=== PATIENT | male | born 1935 | race Caucasian/White ===

== ENCOUNTER 2018-12-10 12:44 | Inpatient (IN) ==
[2018-12-10] MEDS ORDERED: DUONEB (A & A) INH ONE (13:15)
--- NOTE | 2018-12-10 13:35 | EKG Report ---
Test Performed on : 12/10/2018 1:19:40 PM Test Reason : CP Blood Pressure : / mmHG Vent. Rate : 109 BPM Atrial Rate : 234 BPM P-R Int : 000 ms QRS Dur : 070 ms QT Int : 344 ms P-R-T Axes : 000 034 017 degrees QTc Int : 463 ms Atrial fibrillation. with rapid ventricular response. ST & T wave abnormality, consider lateral ischemia Abnormal ECG When compared with ECG of 22-OCT-2014 15:33, Atrial fibrillation. has replaced Sinus rhythm. Nonspecific T wave abnormality now evident in Inferior leads T wave inversion now evident in Lateral leads Unconfirmed Result
[2018-12-10 13:54] LABS: BASO# 0.02 X1000 (0.0-0.2); BASO% 0.2 % (0.0-0.8); HEMATOCRIT 41.4 % (42.0-52.0); HEMOGLOBIN 13.9 g/dL (14.0-18.0); IMM GRAN# 0.04 X1000 (0.0-0.04); IMM GRAN% 0.4 % (0.0-0.5); LYMPH# 0.31 X1000 (1.2-3.4); MCHC 33.6 g/dL (33-37); MCV 92.2 FL (81-99); MONO# 1.01 X1000 (0.11-0.59); MONO% 9.8 % (1.7-9.3); NEUT# 8.88 X1000 (1.4-6.5); NEUT% 86.6 % (42.2-75.2); PLT 169 X1000 (130-400); RBC 4.49 XMIL (4.7-6.1); RDW 12.8 % (11.5-14.5); WBC 10.26 X1000 (4.8-10.8)
[2018-12-10 14:03] LABS: ALBUMIN 3.8 g/dL (3.5-5.0); CALCIUM 9.5 mg/dL (8.8-10.2); CREATININE 1.2 mg/dL (0.7-1.2); POTASSIUM 3.9 mmol/L (3.5-5.1); TOTAL BILIRUBIN 0.7 mg/dL (0.20-1.00); TOTAL PROTEIN 7.5 g/dL (6.3-8.3)
[2018-12-10 14:10] LABS: INFLUENZA A POSITIVE (NEGATIVE); INFLUENZA B NEGATIVE (NEGATIVE)
--- NOTE | 2018-12-10 14:16 | Diag Imaging Result Doc PS360 ---
EXAM: CHEST-2 VIEWS HISTORY: shortness of breath TECHNIQUE: Chest two views COMPARISON: 08/03/2016 FINDINGS: The lungs are hyperexpanded. The heart is not enlarged. The vessels are not distended. There are no infiltrates. There is scarring in the apices with pleural thickening. No pleural effusions. IMPRESSION: No acute abnormality. Electronically signed by Bridger Wolfe 12/10/2018 2:13 PM
[2018-12-10] MEDS ORDERED: NS 1,000 ML IV ONE (15:03)
[2018-12-10] MEDS ORDERED: MAGNESIUM SULFATE 1 GM/D5W 1 GM/100 ML IVPB IV ONE (15:04)
[2018-12-10] MEDS ORDERED: SOLU-MEDROL IV ONE (15:05)
--- NOTE | 2018-12-10 15:07 | PROVIDER DOCUMENTATION ---
HPI-General Adult - General Stated Complaint: FALL, WEAKNESS Time Seen by Provider: 12/10/18 14:51 Source: patient, EMS Allergies/Adverse Reactions: Patient Allergies Allergy/AdvReac Type Severity Reaction Status Date / Time No Known Allergies Allergy Verified 02/04/15 15:24 Home Medications: Home Medication List Medication Instructions Recorded Confirmed Last Taken Type Atorvastatin Calcium 80 mg PO DAILY 10/20/14 07/24/16 07/23/16 20:00 History Hydrocodone/Acetaminophen [[place] 1 each PO Q4-6H PRN PRN #20 tablet 10/20/1410/22/14 00:00 Rx 10-325 Tablet] Ipratropium [place] Neb [Atrovent 0.5 mg NEB BID 10/20/14 07/24/16 07/23/16 12: 00 History Neb] Multivitamin [Multi-Vitamin Daily] 1 each PO DAILY 10/20/14 07/24/16 07/23/16 19 :00 History Budesonide/Formoterol Fumarate 10.2 gm IH BID 10/22/14 07/24/16 07/24/16 08:00 History [Symbicort 160-4.5 Mcg Inhaler] Montelukast Sodium 10 mg PO DAILY 10/22/14 07/24/16 07/23/16 20:00 History Ascorbate Calcium [Vitamin C] 500 mg PO DAILY 07/24/16 07/24/16 07/23/16 20:00 History Hydroxyzine Pamoate 25 mg PO Q4-6H PRN 07/24/16 07/24/16 07/23/16 12:00 History Prednisone 5 mg PO DAILY 07/24/16 07/24/16 07/23/16 20:00 History - History of Present Illness -Gen Adult Nature of Presenting Problems: Has felt weak for two days, no known fever, less interested in po intake, found on ground today, brought here by EMS.. Pt says he has a PMH of afib and copd. There is no one here to give more information Location of Pain/Injury: reports: none Quality of Pain: reports: none Modifying Factors: improves with: nothing Associated Symptoms: reports: fatigue, loss of appetite, malaise, muscle aches, shortness of breath, weakness. denies: anxiety, arm pain, back/neck pain, chest pain, constipation, cough, diaphoresis, diarrhea, dizziness, EENT symptoms , fever/chills, headaches, joint pain, sinus congestion/drainage, nausea, rash, seizure, sensory/motor loss, pain with inspiration, swelling/mass in abdomen, syncope, vomiting, trouble walking Similar Symptoms Previously?: No Recently seen or treated by another doctor?: No Review of Systems - Adult - REVIEW OF SYSTEMS - ADULT Constitutional: reports: no symptoms reported, fatique. denies: fever Eyes: reports: no symptoms reported. denies: discharge Ears, Nose, Mouth & Throat: reports: no symptoms reported. denies: ear discharge, ear pain Cardiovascular: reports: irregular heart rate Respiratory: reports: cough, dyspnea on exertion, shortness of breath, wheezing Gastrointestinal: reports: no symptoms reported Genitourinary: reports: no symptoms reported Musculoskeletal: reports: no symptoms reported Integumentary: reports: no symptoms reported Neurological: reports: no symptoms reported Psychiatric: reports: no symptoms reported Endocrine: reports: no symptoms reported Hematologic/Lymphatic: reports: no symptoms reported Allergic/Immunologic: reports: no symptoms reported All Other Systems: Reviewed and Negative Past History - Adult - PAST MEDICAL HISTORY-ADULT Review of Records: reports: Nursing Assessment Review, Medications Reviewed Major Childhood Illnesses: reports: denies history Cardiovascular: reports: denies history Respiratory: reports: COPD Gastrointestinal: reports: denies history Obstetrical/Gynecological: reports: denies history Genitourinary: reports: denies history, prostate cancer Musculoskeletal: reports: denies history Neurological: reports: denies history Psychiatric: reports: denies history Endocrine/Immune: reports: denies history Other Conditions: reports: denies history - PRIOR SURGERIES/PROCEDURES Surgical/Procedure History: reports: reviewed, not pertinent - IMMUNIZATION STATUS Childhood Immunizations: See Nurse Assessment Flu Vaccine: See Nurse Assessment - FAMILY HISTORY Family History: reviewed, not pertinent Physical Exam-General - PHYSICAL EXAM-ADULT Initial Vital Signs Reviewed: Yes - CONSTITUTIONAL General Appearance: alert, no apparent distress - EYES Eyes: pink conjunctivae - HEAD, EARS, NOSE, MOUTH & THROAT HENMT: other (dry mucus membranes) - NECK Neck: non-tender, full range of motion, supple, normal inspection - RESPIRATORY Respiratory: chest non-tender, lungs clear, respiratory distress (on arrival, off his oxygen after the fall), wheezing, prolonged expiration, increased rate - CARDIOVASCULAR Cardiovascular: irregularly irregular, other (rapid rate) - GASTROINTESTINAL (ABDOMEN) Abdominal Exam: non tender, soft - LYMPHATIC Lymphatic: no adenopathy - MUSCULOSKELETAL Back Exam: normal inspection Extremity: normal range of motion, non-tender, normal inspection Peripheral Pulses: radial (R): 2+, radial (L): 2+, dorsalis-pedis (R): 2+, dorsalis-pedis (L): 2+ - SKIN Integumentary: normal color, normal turgor, warm/dry - NEUROLOGIC Neurologic: grossly normal, no motor/sensory deficits - PSYCHIATRIC Psych/Mental Status: normal mood/affect, normal thought content (slow sometimes to formulate an answer to a question), oriented x 3 Progress - PLAN OF CARE/RESULTS Progress/Plan/Lab Results: Vital Signs - 8 hr 12/10/18 12:44 12/10/18 13:52 Temperature 102.6 F H Pulse Rate 113 H 117 H Respiratory Rate 22 24 Blood Pressure 108/74 O2 Sat by Pulse Oximetry 92 L 95 Laboratory Results - last 24 hr 12/10/18 12/10/18 12/10/18 13:30 13:30 13:30 WBC 10.26 RBC 4.49 L Hgb 13.9 L Hct 41.4 L MCV 92.2 MCH 31.0 MCHC 33.6 RDW Std Deviation 12.8 Plt Count 169 MPV 10.0 Immature Gran % (Auto) 0.4 Neut % (Auto) 86.6 H Lymph % (Auto) 3.0 L [place] % (Auto) 9.8 H Eos % (Auto) 0.0 Baso % (Auto) 0.2 Immature Gran # (Auto) 0.04 Neut # (Auto) 8.88 H Lymph # (Auto) 0.31 L [place] # (Auto) 1.01 H Eos # (Auto) 0.00 Baso # (Auto) 0.02 Segmented Neutrophils Not Reportable Sodium 138 Potassium 3.9 Chloride 100 Carbon Dioxide 22 L Anion Gap 16 BUN 22 Creatinine 1.2 Estimated GFR/1.73 m2 58 BUN/Creatinine Ratio 18 Glucose 126 H Calculated Osmolality 281 Calcium 9.5 Total Bilirubin 0.70 AST 88 H ALT 26 Alkaline Phosphatase 84 Total Protein 7.5 Albumin 3.8 Globulin 4.0 Albumin/Globulin Ratio 1.0 Plasma Lactate 1.6 Influenza A (Rapid) Influenza B (Rapid) 12/10/18 13:40 WBC RBC Hgb Hct MCV MCH MCHC RDW Std Deviation Plt Count MPV Immature Gran % (Auto) Neut % (Auto) Lymph % (Auto) [place] % (Auto) Eos % (Auto) Baso % (Auto) Immature Gran # (Auto) Neut # (Auto) Lymph # (Auto) [place] # (Auto) Eos # (Auto) Baso # (Auto) Segmented Neutrophils Sodium Potassium Chloride Carbon Dioxide Anion Gap BUN Creatinine Estimated GFR/1.73 m2 BUN/Creatinine Ratio Glucose Calculated Osmolality Calcium Total Bilirubin AST ALT Alkaline Phosphatase Total Protein Albumin Globulin Albumin/Globulin Ratio Plasma Lactate Influenza A (Rapid) POSITIVE A Influenza B (Rapid) NEGATIVE Orders Category Date Time Status CHEST-2 VIEWS [RAD] Stat Exams 12/10/18 13:15 Completed CBC WITH ELECTRONIC DIFF [HEME] Stat Lab 12/10/18 13:30 Completed COMPREHENSIVE METABOLIC PANEL [CHEM] Stat Lab 12/10/18 13:[address] Stat Lab 12/10/18 13:40 Completed LACTATE, PLASMA [CHEM] Stat Lab 12/10/18 13:30 Completed Albuterol 2.5MG/Ipratrop 0.5MG [Duoneb (A & A)] Med 12/10/18 13:15 Discontinued 6 ml INH NOW ONE Aerosol Treatments Routine Oth 12/10/18 13:16 Completed Aerosol Treatments Stat Oth 12/10/18 13:16 Completed EKG [EKG] Stat Ther 12/10/18 13:16 Draft pos flu a, afib slightly elevated rate, COPD exacerbation, weakness, CTs wnl though carotid bulms both have severe artheroschlerosis - possibly affects HR BP , , BNP pending, treated for COPD first, HR now 91 once albuterol wore off, chest xray neg BNP elevated, pt does have rhonchi, cannot find any PMH of heart failure Pt unable to stand safely or walk 1712 d/w Dr Le [facility] PMH exam treatment results attempt to ambulate not successful, agreed to admit Result Diagrams: 12/10/18 13:30 12/10/18 13:30 Departure - Departure Date of Disposition Decision: 12/10/18 Time of Disposition Decision: 17:14 DIAGNOSIS: Influenza A, COPD exacerbation, Atrial fibrillation, Weakness Disposition: ADMITTED INPATIENT 09 Certified Medical Emergency: Emergent Condition: Good Referrals and Follow-Ups: Tyler Martinez [Primary Care Provider] - - Critical Care Note This patient required my direct & personal management of CC.: No Attestation - Physician/ MALI Attestation The physician spent face to face time with patient:: Yes Advanced Practice Provider documentation review:: Supervising physician onsite and consulted in the evaluation and care of this patient. The physician did have a face to face encounter with the patient.
--- NOTE | 2018-12-10 16:02 | ED EKG INTERP ---
This chart was entered by Silvestre Lopez Scribe, acting as scribe for Radha Bob MD. EKG Interpretation - EKG Time of EKG reading by physician:: 13:19 EKG Read and Signed by:: Radha Bob EKG Interpretation (*Must complete 3 of following elements*): Abnormal (ST and T wave abnormality consdier lateral ischemia) Rate: 109 Rhythm: afib with rvr Index: normal QRS: normal IA Interval: normal Attestation - Physician/ MALI Attestation Patient care was provided by Advanced Practice Provider:: No The physician spent face to face time with patient:: Yes Advanced Practice Provider documentation review:: Supervising physician onsite and consulted in the evaluation and care of this patient. The physician did have a face to face encounter with the patient. This chart was documented by the indicated scribe, (Silvestre Lopez Scribe) and accurately reflects the services I performed and decisions made by me, Radha Bob MD, as attested by the provider's signature.
--- NOTE | 2018-12-10 16:13 | Diag Imaging Result Doc PS360 ---
EXAM : CT HEAD/C-SPINE W/O CONTRAST HISTORY: FALL TECHNIQUE: 1. CT head without contrast 2. CT cervical spine without contrast COMPARISON: None. FINDINGS: Head: No parenchymal hemorrhage. No epidural or subdural hematoma. No subarachnoid hemorrhage. There is atrophy. Small hypodense area in the left occipital lobe. No mass identified on this noncontrasted exam. No hydrocephalus. No skull fracture. Prominent mucus in the ethmoid sinuses and right frontal sinus with a small to moderate amount of mucus in the maxillary sinuses. Cervical spine: There is mild scoliosis. Prominent degenerative bone spurring throughout the cervical spine. No precervical soft tissue swelling. No subluxation. 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 There is long-standing narrowing to the joint space between the C1 vertebra and C2 vertebra. No acute fracture. Severe atherosclerosis. IMPRESSION: Head: 1. No acute hemorrhage 2. 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 A follow-up MRI may be beneficial. 3. Sinusitis Cervical spine: 1. No acute fracture 2. Prominent degenerative changes 3. Severe atherosclerosis in the carotid bulbs This exam was performed using automated exposure control, adjustment of mA or kV according to patient size, and/or use of iterative reconstruction technique. Electronically signed by Bridger Wolfe 12/10/2018 4:11 PM
[2018-12-10] MEDS ORDERED: TYLENOL PO PRN (17:58)
[2018-12-10] MEDS ORDERED: ZOFRAN IV PRN (17:58)
[2018-12-10] MEDS ORDERED: DUONEB (A & A) INH PRN (17:58)
[2018-12-10] MEDS: DUONEB (A & A) INH SCH ×2 (18:58→23:06)
[2018-12-10] MEDS ORDERED: M.V.I.-12 10 ML, FOLIC ACID 1 MG, MAGNESIUM SULFATE 1 GM, THIAMINE 100 MG in NS 1,000 ML IV ONE (19:00)
[2018-12-10] MEDS: ROCEPHIN 1 GM in NS 50 ML IV SCH (20:16)
[2018-12-10] MEDS: NS 1,000 ML IV SCH (20:16)
[2018-12-10] MEDS: TAMIFLU PO SCH (20:20)
--- NOTE | 2018-12-11 01:45 | HISTORY AND PHYSICAL ---
CHIEF COMPLAINT: Fall and weakness. HISTORY OF PRESENT ILLNESS: The patient notes that he has felt weak for the past 2 or 3 days. The family checked on him today and he was found on the ground, he was very weak, he was brought to the ER via ambulance. He does have a past medical history of COPD and atrial fibrillation. While in the ER he was noted to have an influenza A positive test. ALLERGIES: No known drug allergies. MEDICATIONS: Atorvastatin 80, Ubly, Atrovent, Symbicort, Singulair. These are the medications per his old record, I do not have a current active medical list from the patient or from his pharmacy. PAST MEDICAL HISTORY: COPD, prostate cancer. REVIEW OF SYSTEMS: As noted above the patient notes he has been very tired, fatigued, increased cough, congestion, fevers, chills. Denies any nausea, vomiting, dysuria, frequency, urgency. Denies polyuria or polydipsia. FAMILY HISTORY: Noncontributory. SOCIAL HISTORY: The patient lives at home. He does have family that checks on him occasionally. PHYSICAL EXAMINATION: VITAL SIGNS: Temperature 102.6, pulse 113, respiratory rare 22, BP 108/72. GENERAL: The patient is awake and alert. He is [id number] ill-appearing, although he is not in any real respiratory distress. HEENT: Normocephalic. NECK: Supple. CARDIOVASCULAR: Regular rate. CHEST: Clear. ABDOMEN: Soft. EXTREMITIES: Moves all extremities. ASSESSMENT: 1. Atrial fibrillation, currently he is not rate controlled. 2. Influenza A positive. 3. Febrile illness. 4. Generalized weakness and frequent falls. PLAN: We will admit the patient to the hospital. IV fluids. We will follow his COPD exacerbation with breathing treatments. We will place him on Tamiflu and we will follow. cc: Christiano Le MD
[2018-12-11] MEDS: DUONEB (A & A) INH SCH ×6 (03:41→23:05)
[2018-12-11 07:58] LABS: BASO# 0.01 X1000 (0.0-0.2); BASO% 0.1 % (0.0-0.8); HEMOGLOBIN 13.1 g/dL (14.0-18.0); IMM GRAN# 0.04 X1000 (0.0-0.04); IMM GRAN% 0.4 % (0.0-0.5); LYMPH# 0.48 X1000 (1.2-3.4); LYMPH% 4.4 % (20.5-51.1); MCH 30.1 PG (27-31); MCHC 32.8 g/dL (33-37); MONO# 0.63 X1000 (0.11-0.59); MONO% 5.8 % (1.7-9.3); NEUT# 9.76 X1000 (1.4-6.5); NEUT% 89.3 % (42.2-75.2); PLT 135 X1000 (130-400); RBC 4.35 XMIL (4.7-6.1); RDW 12.8 % (11.5-14.5); WBC 10.92 X1000 (4.8-10.8)
[2018-12-11 08:03] LABS: AGAP 10; ALBUMIN 3.1 g/dL (3.5-5.0); ALKALINE PHOSPHATASE 67 U/L (32-122); BUN 19 mg/dL (8-22); CALCIUM 8.9 mg/dL (8.8-10.2); CHLORIDE 107 mmol/L (98-107); COSMO 282; CREATININE 0.8 mg/dL (0.7-1.2); ESTIMATED GFR > 60; GLUCOSE 108 mg/dL (70-104); GOT 91 U/L (10-34); GPT 27 U/L (10-44); POTASSIUM 3.5 mmol/L (3.5-5.1); SODIUM 140 mmol/L (136-145); TCO2 23 mmol/L (25-35); TOTAL PROTEIN 6.2 g/dL (6.3-8.3)
[2018-12-11 09:40] LABS: LYMPHS 5 % (21-51); MONO 3 % (1-9); SEGS 92 % (42-75)
[2018-12-11] MEDS: TAMIFLU PO SCH ×2 (10:29→20:22)
[2018-12-11] MEDS: NS 1,000 ML IV SCH (10:29)
[2018-12-11] MEDS: ROCEPHIN 1 GM in NS 50 ML IV SCH (19:02)
--- NOTE | 2018-12-11 21:55 | PROGRESS NOTE ---
DATE: 12/11/2018 SUBJECTIVE: Patient overall notes he is feeling a little bit better although still feels terrible does not feel back to his baseline still having cough, congestion, shortness of breath, still having difficulty sleeping. Denies any fevers or chills. PHYSICAL: Temperature 98.1, pulse 80, respiratory 18, BP 134/68.General: Patient is awake, alert, very pleasant talk with, he is in mild respiratory distress. HEENT: Normocephalic. Neck: Supple. CV: Regular rate . Chest: Decreased but equal breath sounds, no current crackles, no wheezing. Abdomen: Soft nondistended. ASSESSMENT: 1. Atrial fibrillation currently rate controlled . 2. Influenza A positive. 3. Febrile illness. 4. 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 5. Generalized adult failure to thrive. PLAN: Continue patient in the hospital today, hopefully can discharge home over the next day or 2 if his symptoms continue to improve and will follow. Continue Tamiflu and symptomatic medication. cc: Christiano Le MD
[2018-12-12] MEDS: NS 1,000 ML IV SCH (00:44)
[2018-12-12] MEDS: DUONEB (A & A) INH SCH ×5 (03:38→19:37)
[2018-12-12] MEDS: TAMIFLU PO SCH (08:25)
[2018-12-12] MEDS ORDERED: NICODERM PATCH TD PRN (10:00)
[2018-12-12 14:55] VITALS: BP 119/71
[2018-12-12] MEDS ORDERED: ATARAX PO PRN (15:44)
[2018-12-12] MEDS ORDERED: ROBAXIN PO PRN (15:44)
[2018-12-12] MEDS ORDERED: BENTYL PO PRN (15:44)
[2018-12-12] MEDS ORDERED: LIBRIUM PO SCH (15:45)
--- NOTE | 2018-12-12 16:19 | EKG Report ---
Test Performed on : 12/12/2018 3:11:34 PM Test Reason : cp Blood Pressure : / mmHG Vent. Rate : 085 BPM Atrial Rate : 227 BPM P-R Int : 000 ms QRS Dur : 088 ms QT Int : 382 ms P-R-T Axes : 000 020 046 degrees QTc Int : 454 ms Atrial fibrillation. Abnormal ECG When compared with ECG of 10-DEC-2018 13:19, (Unconfirmed) Nonspecific T wave abnormality, improved in Inferior leads T wave inversion no longer evident in Anterolateral leads Unconfirmed Result
[2018-12-12] MEDS: ROCEPHIN 1 GM in NS 50 ML IV SCH (18:53)
--- NOTE | 2018-12-12 23:30 | PROGRESS NOTE ---
DATE: 12/12/2018 SUBJECTIVE: Patient this morning stated that he wanted to go home. He was feeling better. Denies any fevers. PHYSICAL EXAMINATION: Vital Signs: Temperature 98 degrees, pulse 97, respiratory 12, BP 110/65. General: Patient is awake, alert. He is in no respiratory distress currently. HEENT: Normocephalic. Neck: Supple. CARDIOVASCULAR: Regular rate. Chest: Clear. Abdomen: Soft. Extremities: Moves all extremities. ASSESSMENT: 1. Influenza A positive. Overall, his symptoms have improved. He is in no respiratory distress. He is afebrile. 2. Atrial fibrillation. 3. Febrile illness. 4. Generalized weakness. 5. History of cerebrovascular accident. 6. History of chronic alcoholism. PLAN: We had actually planned on sending patient home. However, his family refused to take him back home. This afternoon patient started having some withdrawal symptoms and then admits that he does drink alcohol on a regular daily basis. However, he does not want his family to know this. We will start him on Librium. Discussed with him that is very important that he stops drinking as well as tell his family. We will continue to follow. cc: Chritsiano Le MD
--- NOTE | 2018-12-16 22:54 | DISCHARGE SUMMARY ---
ADMISSION DATE: 12/10/2018 DISCHARGE DATE: 12/13/2018 DISCHARGE DIAGNOSIS: 1. Atrial fibrillation. 2. Flu A positive. 3. Febrile illness, resolved. 4. Generalized weakness. 5. Old cerebrovascular accident in the left occipital region. CONSULTATIONS: None. PROCEDURES: None. BRIEF HOSPITAL COURSE: Patient is an 83-year-old male who presented to the hospital. Was placed on Tamiflu for his influenza type A as well as Rocephin. Thankfully, overall he continued to improve. On discharge, he is awake, alert and he is ambulating without any difficulty. DISPOSITION: Patient will be discharged home. Will continue Tamiflu and Omnicef at home. Will follow up outpatient with his primary care. TIME SPENT: Greater than 30 minutes was spent in total care. cc: Christiano Le MD
== END 2018-12-12 20:50 | disposition home or self-care (01) | DRG 191 ==
LOC: P.ED 12:44 → P.MEDSURG 18:47
PROVIDERS: ATTEND Family Medicine
CPT/HCPCS: 70450; 71020; 71046; 72125; 80053; 83605; 83880; 85025; 87040; 87275; 87276; 87804; 93005; 94640; 94761; 94799; 96365; 96367; 96375; 99285; A9270; J0696; J2930; J3411; J3475; J7030